=== PATIENT | female | born 1995 | race Caucasian/White ===

== ENCOUNTER 2022-12-29 15:14 | Outpatient (CLI) | payer BC, MEDICAID, SELFPAY ==
--- NOTE | 2022-12-29 15:21 | XR_ITS ---
WS: [id number] EXAMINATION: XR lumbar spine 2-3V* [id number] L-SPINE : 3 views REASON FOR EXAM: M54.50 - Low back pain, unspecified COMPARISON: None available. ORDER DATE: 12/29/2022 3:26 PM FINDINGS: The lumbar vertebral bodies and the disc spaces are normal in width. In the lumbar vertebra, there i s no evidence of compression deformities or spondylolisthesis. IMPRESSION: UNREMARKABLE LUMBAR SPINE STUDY
== END 2022-12-29 15:15 | disposition home or self-care (01) ==
LOC: RAD 15:16
PROVIDERS: PCP Nurse Practitioner Family; Visit Provider Nurse Practitioner Family
DX: M54.50 Low back pain, unspecified
CPT/HCPCS: 72100

== ENCOUNTER 2023-01-20 16:12 | Emergency (ER) | payer BC, MEDICAID, SELFPAY ==
[2023-01-20 16:21] VITALS: BP 134/88; PULSE 88; RESP 16; TEMP 36.6; O2SAT 99; BMI 46.7
[2023-01-20 16:54] VITALS: BP 126/85; PULSE 96; O2SAT 100
[2023-01-20 16:58] VITALS: BP 147/96; BP 151/99; BP 161/110; PULSE 87; PULSE 90
--- NOTE | 2023-01-20 16:59 | W.ED.GIBLEED ---
HPI - GI Bleed General: Chief complaint: GI Bleed Stated complaint: blood in stool Time Seen by Provider: 01/20/23 16:58 History of Present Illness: 27-year-old female comes in today with bright red blood in the stool. Patient reports noticing blood on and off for the last month. Patient reported increased amount of blood in the stool today. Patient has had 2 prior pregnancies with 2 C-sections. Patient reports no known history of hemorrhoids. Patient denies any routine medications. Patient appears nontoxic. Patient appears in no pain. Associated symptoms: Reports nausea; Denies vomiting Review of Systems General: Reports: 10 or more systems reviewed and unremarkable except in HPI and below GI: Reports: nausea and hematochezia; Denies: vomiting, diarrhea or constipation PFSH ED PFSH: Family History Mother Cancer breast Social History Smoking and tobacco status: former smoker Quit status (tobacco): has quit using tobacco Year quit tobacco: 11/07/2022 Second hand smoke exposure: No Alcohol intake: current Alcohol intake frequency: few times a month Alcohol type: wine Substance/Drug Use: never Adopted: Yes Lives independently: Yes Household members: significant other Marital status: Life Partner Number of children: 2 service: No Current occupational status: unemployed Current gender identity: Female Special soren needs: No Physical Exam Const: COMMON NORMALS: alert HENMT: COMMON NORMALS: normocephalic HEAD & SCALP: normocephalic Neck/C-Spine: COMMON NORMALS: full ROM Resp: COMMON NORMALS: normal respiratory effort Cardio: COMMON NORMALS: regular rate and regular rhythm RATE: regular rate RHYTHM: regular rhythm GI: AUSCULTATION: Yes normoactive bowel sounds PALPATION: No Tenderness to palpation present (GI) RECTAL EXAM: normal sphincter tone, heme positive stool, External hemorrhoid(s) present (No acute old healed) and Internal hemorrhoid(s) present (No palpable) OTHER: No stool was noted in the rectum, no palpable masses or other abnormalities. : COMMON NORMALS: Yes no CVA tenderness BLADDER/KIDNEY EXAM: Yes no CVA tenderness Back/Pelvis: COMMON NORMALS: no CVA tenderness Extremity: COMMON NORMALS: full ROM Neuro: SENSORIUM/ORIENTATION: Yes alert Psych: COMMON NORMALS: cooperative Skin: COMMON NORMALS: turgor normal GENERAL SKIN EXAM: turgor normal Course Vital Signs: Vital signs: Vital Signs Temperature 97.9 F 01/20/23 16:21 Pulse Rate 77 01/20/23 17:58 Respiratory Rate 16 01/20/23 16:21 Blood Pressure 152/82 01/20/23 17:58 Pulse Oximetry 94 01/20/23 17:58 Oxygen Delivery Me thod Room Air 01/20/23 16:21 MDM - GI Bleed Medical Decision Making Patient comes in today for concerns of blood in the stool. On exam patient appears nontoxic. Abdomen soft nontender. Skin is warm and dry. Color is pink. Rectal exam noted a Hemoccult positive. Old hemorrhoids were noted externally. No palpable masses or abnormalities was noted on the exam. Differential diagnosis includes but not limited to carcinoma, polyps, internal hemorrhoids. CBC noted a hemoglobin of 12.9. CMP was unremarkable. hCG was negative. Reviewed exam with patient with recommendations for follow-up with surgeon for colonoscopy for further evaluation. Patient was written a prescription for hemorrhoidal suppositories to use for the next 6 days to see if it would help with the abnormal bleeding. I believe patient probably has internal hemorrhoids but she should have further evaluation due to the amount of blood she reports to rule out other causes. Patient reported understanding, patient was stable and discharged home. Lab Data 01/20/23 16:59 01/20/23 16:59 Laboratory Results WBC 9.55 10^3/uL (3.29-11.43) 01/20/23 16:59 RBC 4.91 10^6/uL (3.85-5.65) 01/20/23 16:59 Hgb 12.90 g/dL (11.27-16.99) 01/20/23 16:59 Hct 41.0 % (36-47) 01/20/23 16:59 MCV 83.5 fl (85-98) L 01/20/23 16:59 MCH 26.3 pg (27-33) L 01/20/23 16:59 MCHC 31.5 g/dL (30-55) 01/20/23 16:59 RDW 14.8 % (12.1-15.1) 01/20/23 16:59 Plt Count 268 10^3/cmm (157-399) 01/20/23 16:59 MPV 10.6 fL (7.4-10.4) H 01/20/23 16:59 Neut % (Auto) 66.8 % 01/20/23 16:59 Lymph % (Auto) 25.9 % 01/20/23 16:59 [place] % (Auto) 5.0 % 01/20/23 16:59 Eos % (Auto) 1.3 % 01/20/23 16:59 Baso % (Auto) 0.7 % 01/20/23 16:59 Neut # (Auto) 6.38 10^3/uL (1.8-7.7) 01/20/23 16:59 Lymph # (Auto) 2.5 10^3/uL (0.8-4.8) 01/20/23 16:59 [place] # (Auto) 0.5 10^3/uL (0.2-0.9) 01/20/23 16:59 Eos # (Auto) 0.1 10^3/uL (0.0-0.8) 01/20/23 16:59 Baso # (Auto) 0.1 10^3/uL (0.0-0.1) 01/20/23 16:59 Nucleated RBC % (auto) 0 % 01/20/23 16:59 Nucleated RBCs # 0.0 /100WBC 01/20/23 16:59 Sodium 141 mmol/L (136-145) 01/20/23 16:59 Potassium 3.6 mmol/L (3.5-5.1) 01/20/23 16:59 Chloride 106 mmol/L (98-107) 01/20/23 16:59 Carbon Dioxide 26 mmol/L (22-29) 01/20/23 16:59 Anion Gap 12.6 (5-19) 01/20/23 16:59 BUN 14 mg/dL (6-20) 01/20/23 16:59 Creatinine 0.6 mg/dL (0.5-0.9) 01/20/23 16:59 GFR Calculation 119.9 mL/min (90-130) 01/20/23 16:59 Glucose 88 mg/dL (65-115) 01/20/23 16:59 Calculated Osmolality 292 mOsm/kg (285-295) 01/20/23 16:59 Calcium 9.2 mg/dL (8.5-10.5) 01/20/23 16:59 Total Bilirubin 0.4 mg/dL (0.15-1.2) 01/20/23 16:59 AST 15 U/L (0-32) 01/20/23 16:59 ALT 19 U/L (0-33) 01/20/23 16:59 Alkaline Phosphatase 74 U/L (35-105) 01/20/23 16:59 Total Protein 7.9 g/dL (6.6-8.7) 01/20/23 16:59 Albumin 4.5 g/dL (3.5-5.2) 01/20/23 16:59 Globulin 3.4 g/dL (1.3-4.6) 01/20/23 16:59 HCG, Qual Negative (Negative) 01/20/23 16:59 Discharge Plan Discharge Patient Disposition: Home Clinical Impression: Hematochezia Condition: Stable Prescriptions: New Hemorrhoidal 0.25-3 % suppository 1 supp AL BID Qty: 12 0RF No Action diclofenac sodium 75 mg tablet,delayed release (DR/EC) 75 mg PO BID PRN (Reason: pain) Qty: 60 2RF cyclobenzaprine 10 mg tablet 10 mg PO TID PRN (Reason: muscle spasm) Qty: 30 1RF Discharge Orders: Discharge ED (Routine); Ordered 01/20/23 Ordered By: Stewart Siddiqui Referrals: Leatha Squires FNP [Primary Care Provider] - Discharge Diet: Usual diet Discharge Activity: Increase activity as tolerated Patient Instructions: Melena (ED) Activity Restrictions/Additional Instructions: Use a stool softener to keep stools soft. Use hemorrhoidal suppository 1 suppository 2 times a day for the next 6 days. Drink plenty water and fluids. Avoid ibuprofen, naproxen, and aspirin containing products. You can use acetaminophen for pain. Try to avoid straining hard to have bowel movements or sitting for prolonged periods on the toilet. Case management will contact you regarding follow-up appointment with surgeon for colonoscopy. Return to ED for worsening symptoms such as high fever greater than 100.4, worsening blood in the stool, increased abdominal pain, or new concerns. Coding Level of Care Code ED Machinist Class B for Fernando Villatoro
[2023-01-20 17:09] LABS: Basophils # 0.1 10^3/uL (0.0-0.1); Basophils % 0.7 %; Eosinophils # 0.1 10^3/uL (0.0-0.8); Eosinophils % 1.3 %; Lymphocytes # 2.5 10^3/uL (0.8-4.8); Lymphocytes % 25.9 %; Mean Corpuscular HGB Conc 31.5 g/dL (30-55); Mean Corpuscular Hemoglobin 26.3 pg (27-33); Mean Corpuscular Volume 83.5 fl (85-98); Mean Platelet Volume 10.6 fL (7.4-10.4); Monocytes # 0.5 10^3/uL (0.2-0.9); Neutrophils # 6.38 10^3/uL (1.8-7.7); Neutrophils % 66.8 %; Nucleated Red Blood Cells % 0 %; Platelet Count 268 10^3/cmm (157-399); Red Blood Count 4.91 10^6/uL (3.85-5.65); Red Cell Distribution Width 14.8 % (12.1-15.1); White Blood Count 9.55 10^3/uL (3.29-11.43)
[2023-01-20 17:30] LABS: Alanine Aminotransferase 19 U/L (0-33); Albumin Level 4.5 g/dL (3.5-5.2); Alkaline Phosphatase 74 U/L (35-105); Anion Gap 12.6 (5-19); Aspartate Amino Transferase 15 U/L (0-32); Blood Urea Nitrogen 14 mg/dL (6-20); Calcium 9.2 mg/dL (8.5-10.5); Carbon Dioxide 26 mmol/L (22-29); Chloride 106 mmol/L (98-107); Globulin 3.4 g/dL (1.3-4.6); Glomerular Filtration Rate 119.9 mL/min (90-130); Glucose 88 mg/dL (65-115); Osmolality Calculated 292 mOsm/kg (285-295); Potassium 3.6 mmol/L (3.5-5.1); Sodium 141 mmol/L (136-145); Total Bilirubin 0.4 mg/dL (0.15-1.2); Total Protein 7.9 g/dL (6.6-8.7)
[2023-01-20 17:31] LABS: HCG, Serum Qual Negative (Negative)
[2023-01-20 17:58] VITALS: BP 152/82; PULSE 77; O2SAT 94
--- NOTE | 2023-01-21 11:21 | DCPLANNER ---
beef cattle farm manager had message to schedule a follow up appointment for patient with general surgery. beef cattle farm manager sent patients information to the front office staff at general surgery. Patients information will be printed and reviewed. Clinic will call patient with appointment information.
== END 2023-01-20 17:59 | disposition home or self-care (01) ==
PROVIDERS: Emergency Provider Nurse Practitioner Family; PCP Nurse Practitioner Family
DX: K92.1 Melena (principal); Z87.891 Personal history of nicotine dependence
CPT/HCPCS: 80053; 84703; 85025; 99283

== ENCOUNTER 2023-01-30 19:34 | Emergency (ER) | payer BC, MEDICAID, SELFPAY ==
[2023-01-30 19:41] VITALS: BP 135/87; PULSE 84; RESP 17; TEMP 36.8; O2SAT 99; BMI 45.7
[2023-01-30 20:10] VITALS: BP 154/83; PULSE 90; RESP 18; O2SAT 99
[2023-01-30 20:21] LABS: HCG Qualitative Urine. Negative (Negative)
[2023-01-30 20:22] LABS: Add Urine Microscopic? YES; Bilirubin Urine Neg (Negative); Blood Urine 3+ (Negative); Glucose Urine UA Norm (Normal); Ketones Urine Negative (Negative); Leukocyte Esterase Urine Negative (Negative); Nitrate Urine Negative (Negative); Protein Urine Neg (Negative); Urine Appearance Clear (CLEAR); Urine Color Yellow (Yellow); Urobilinogen Urine Norm (Negative); pH Urine 5 (5-7)
--- NOTE | 2023-01-30 20:24 | ED_ITS ---
HPI - Back Pain/Injury General: Chief Complaint: Back Pain/Injury Stated Complaint: back pain, Left side pain Time Seen by Provider: 01/30/23 19:40 Source: patient History of Present Illness: 27-year-old female with a several month history of back pain. She says in August she was seen in outside facility and had an x-ray showing potential for a pars defect. She has seen her primary physician, and is scheduled for an MRI day after tomorrow. She says that over the last 2 days, her pain is gotten much worse. Pain is radicular on the left side down to her knee. She says the pain stretches up into her left shoulder as well. She says it is painful to move, making it hard to walk. She can walk. Her strength is intact. She is not overly weak. No saddle anesthesia. No numbness or tingling whatsoever. No fever. No abdominal pain. No change in her urine. She does not believe she is . MD elicited complaint: back pain Associated symptoms: Reports difficulty walking and nausea; Deny abdominal pain, chills, dysuria, fever(s), hematuria or vomiting Review of Systems Const: Denies: fever(s) or chills ENMT: Denies: throat pain Card: Denies: chest pain Resp: Denies: dyspnea GI: Reports: nausea; Denies: abdominal pain or vomiting : Denies: flank pain, difficulty voiding, dysuria or hematuria Musc: Reports: back pain; Denies: neck pain Skin/Breast: Denies: rash Neuro: Reports: difficulty walking; Denies: weakness in extremities, sensory changes or dizziness PFS ED PFSH: Family History Mother Cancer breast Social History Smoking and tobacco status: former smoker Quit status (tobacco): has quit using tobacco Year quit tobacco: 11/07/2022 Second hand smoke exposure: No Alcohol intake: current Alcohol intake frequency: few times a month Alcohol type: wine Substance/Drug Use: never Adopted: Yes Lives independently: Yes Household members: significant other Marital status: Life Partner Number of children: 2 service: No Current occupational status: unemployed Current gender identity: Female Special soren needs: No Physical Exam Const: COMMON NORMALS: no acute distress GENERAL APPEARANCE: cooperative; not ill appearing and not frail appearing HENMT: COMMON NORMALS: normocephalic, atraumatic and Normal external nose present HEAD & SCALP: normocephalic and atraumatic FACE & SINUS: normal facial exam and face symmetric NOSE: Normal external nose present Eye: COMMON NORMALS: Equal, round and reactive pupils present and EOMs intact bilaterally PUPIL: Yes Equal, round and reactive pupils present Neck/C-Spine: GENERAL: Yes trachea midline Chest: CHEST: Yes Symmetrical chest wall rise Resp: COMMON NORMALS: normal respiratory effort, No retractions, No use of accessory muscles and clear to auscultation bilaterally AUSCULTATION: clear to auscultation bilaterally Cardio: COMMON NORMALS: regular rate and regular rhythm RATE: regular rate RHYTHM: regular rhythm GI: COMMON NORMALS: Normal to inspection, nondistended, normoactive bowel sounds present Back/Pelvis: OTHER: Examination lumbar spine reveals pain over the L4-5 L5-S1 areas in the midline and to the left. No right-sided tenderness. No significant muscle spasm. Straight leg raise on the left causes pain to radiate to the knee, but not below. Opposite leg is negative. Sensation is intact. Strength on testing of L4, L5, and S1 roots is normal. Extremity: COMMON NORMALS: no pedal edema Neuro: GEORGINA COMA SCALE: document GCS findings Georgina coma scale eye opening: Spontaneous [place] coma scale verbal response: Orientated Georgina coma scale motor response: Obey commands [place] coma scale total score: 15 SENSORY EXAM: Yes extremities (intact) Psych: COMMON NORMALS: speech normal SPEECH: Yes normal speech Skin: COMMON NORMALS: no rashes or lesions noted GENERAL SKIN EXAM: no rashes or lesions noted Course Vital Signs: Vital signs: Vital Signs Temperature 98.2 F 01/30/23 19:41 Pulse Rate 90 01/30/23 20:10 Respiratory Rate 18 01/30/23 20:10 Blood Pressure 154/83 01/30/23 20:10 Pulse Oximetry 99 01/30/23 20:10 Oxygen Delivery Me thod Room Air 01/30/23 20:10 MDM - Back Pain/Injury Medical Decision Making Urinalysis is negative. Urine is negative. X-ray from 12/29/2022 is reviewed, showing normal alignment of the lumbar spine. Disc spaces are maintained. There is no spondylolisthesis. No clear pars defects are noted. We have no ability to do MRI scanning from the ER at this facility. She is scheduled in 36 hours or so to do her MRI. I think that this is appropriate. Labs Laboratory Results HCG, Qual Negative (Negative) 01/30/23 Unknown Urine Color Yellow (Yellow) 01/30/23 Unknown Urine Appearance Clear (CLEAR) 01/30/23 Unknown Urine pH 5 (5-7) 01/30/23 Unknown Ur Specific [place] 1.030 (1.005-1.030) 01/30/23 Unknown Urine Protein Neg (Negative) 01/30/23 Unknown Urine Glucose (UA) Norm (Normal) 01/30/23 Unknown Urine Ketones Negative (Negative) 01/30/23 Unknown Urine Blood 3+ (Negative) H 01/30/23 Unknown Urine Nitrate Negative (Negative) 01/30/23 Unknown Urine Bilirubin Neg (Negative) 01/30/23 Unknown Urine Urobilinogen Norm mg/dL (Negative) 01/30/23 Unknown Ur Leukocyte Esterase Negative (Negative) 01/30/23 Unknown Urine RBC 0-4 /hpf (0-2) H 01/30/23 Unknown Urine WBC Rare /hpf (0-5) 01/30/23 Unknown Ur Squamous Epith Cells 0-4 /hpf (0-5) H 01/30/23 Unknown Amorphous Sediment Not Reportable 01/30/23 Unknown Urine Bacteria Trace /hpf (NONE) 01/30/23 Unknown Urine Mucus 1+ /hpf 01/30/23 Unknown No radiology studies performed this visit Discharge Plan Discharge Patient Disposition: Home Clinical Impression: Lumbar radiculopathy, Chronic low back pain Condition: Stable Prescriptions: New hydrocodone-acetaminophen 5-325 mg tablet 1 tab PO Q8H PRN (Reason: pain) Qty: 7 0RF Medrol (Hipolito) 4 mg tablets,dose pack See Rx Instructions .ROUTE .COMPLEX Qty: 21 0RF Rx Instructions: orally per package directions No Action polyethylene glycol 3350 [Miralax] 17 gram/dose powder 17 g PO DAILY PRN (Reason: constipation) Qty: 238 2RF docusate sodium 100 mg capsule 100 mg PO DAILY 30 Days Qty: 30 2RF diclofenac sodium 75 mg tablet,delayed release (DR/EC) 75 mg PO BID PRN (Reason: pain) Qty: 60 2RF cyclobenzaprine 10 mg tablet 10 mg PO TID PRN (Reason: muscle spasm) Qty: 30 1RF Hemorrhoidal 0.25-3 % suppository 1 supp GA BID Qty: 12 0RF Discharge Orders: Discharge ED (Routine); Ordered 01/30/23 Ordered By: Ricco Salazar Referrals: Leatha Squires FNP [Primary Care Provider] - 1-3 days Patient Instructions: Lumbar Radiculopathy (ED), Opioid Safety, Pain Management Activity Restrictions/Additional Instructions: Medication as directed. Blister pack of medication has been shown to decrease radicular pain down your leg 80% of the time significantly. Follow-up on Wednesday for your MRI as scheduled. Follow-up with your doctor this week. Return for fever, loss of sensation, especially to your groin or genital area, loss of control of your bowel or bladder function, other concerning symptoms. Coding Level of Care Code ED Out And Out Cigar Maker Hand for Fernando Villatoro
[2023-01-30 20:30] LABS: RBC Urine 0-4 /hpf (0-2); Squamous Epithelial Cell Urine 0-4 /hpf (0-5); WBC Urine RARE /hpf (0-5)
[2023-01-30 20:31] LABS: Add Urine Culture? No; Bacteria Urine TRACE /hpf; Mucus Urine 1+ /hpf
[2023-01-30] MEDS: dexamethasone 4 mg Tablet 10 MG PO (20:41)
[2023-01-30] MEDS: oxyCODONE-APAP 5-325 mg Tablet 2 TAB PO (20:41)
[2023-01-30] MEDS: ketorolac 30 mg/mL INJ 60 MG IM (20:45)
[2023-01-30 21:30] VITALS: BP 130/70; PULSE 66; RESP 16; O2SAT 98
== END 2023-01-30 21:26 | disposition home or self-care (01) ==
PROVIDERS: Emergency Provider Emergency Medicine; PCP Nurse Practitioner Family
DX: M54.16 Radiculopathy, lumbar region (principal); G89.29 Other chronic pain; Z87.891 Personal history of nicotine dependence
CPT/HCPCS: 81001; 81025; 96372; 99284; J1885; J8540

== ENCOUNTER 2023-02-01 07:44 | Outpatient (CLI) | payer BC, MEDICAID, SELFPAY ==
--- NOTE | 2023-02-01 08:00 | MR_ITS ---
WS: [id number] MRI LUMBAR SPINE NONCONTRAST TECHNIQUE: Sagittal T1, T2 and STIR imaging. Axial T1 and T2 imaging. CLINICAL INFORMATION: M54.50 - Low back pain, unspecified COMPARISON: None. FINDINGS: Mild lumbar curve. No acute compression. No high-grade central canal stenosis. L1-L2: Mild facet arthropathy. Spinal canal and foramen are patent. L2-L3: Mild facet arthropathy. Spinal canal and foramen are patent. L3-L4: No significant disc bulging. Mild arthropathy. Spinal canal and foramen are patent. L4-L5: Minimal annular bulging. Slight effacement of the ventral thecal sac. Mild facet arthropathy. Small facet effusions. Spinal canal and foramen are patent. L5-S1: Minimal annular bulging. Moderate facet arthropathy. Small facet effusions. Spinal canal and f oramen are patent. Visualized pelvic bony structures: Normal. Paravertebral soft tissues: Normal. IMPRESSION: 1. Mild lumbar curve. No acute compression. No high-grade central canal stenosis. 2. Minimal annular bulging L4-5 and L5-S1. No significant central canal stenosis. 3. Mild facet arthropathy L4-5 and moderate facet arthropathy L5-S1 with small bilateral facet effus ions can be seen with synovitis or instability. 4. No significant foraminal narrowing.
== END 2023-02-01 07:45 | disposition home or self-care (01) ==
LOC: RAD 07:44
PROVIDERS: PCP Nurse Practitioner Family; Visit Provider Nurse Practitioner Family
DX: G89.29 Other chronic pain (principal); M54.50 Low back pain, unspecified; M51.36 Other intervertebral disc degeneration, lumbar region; M12.88 Other specific arthropathies, not elsewhere classified, other specified site
CPT/HCPCS: 72148

== ENCOUNTER 2023-03-20 19:15 | Emergency (ER) | payer BC, MEDICAID, SELFPAY ==
[2023-03-20 19:20] VITALS: BP 149/114; PULSE 111; RESP 20; TEMP 36.7; O2SAT 97
--- NOTE | 2023-03-20 19:40 | ECG_ITS ---
[facility] Test Date: 2023-03-20 Pat Name: Deborah Stark Department: Room: Gender: Female Package Delivery Driver: : [id number] Requested By: Ricco Morales Order Number: [id number] Shama MD: Clotilde Huber M.D. Measurements Intervals [place] Rate: 96 P: 58 OR: 160 QRS: 22 QRSD: 92 T: 38 QT: 327 QTc: 413 Interpretive Statements SINUS RHYTHM POSSIBLE LEFT ATRIAL ENLARGEMENT [-0.1mV P-WAVE IN V1/V2] NONSPECIFIC T-WAVE ABNORMALITY No previous ECG available for comparison Electronically Signed On 03-22-2023 9:44:12 BED SPRING MAKER by Clotilde Huber M.D. [id number]
[2023-03-20 20:04] VITALS: BP 174/111; PULSE 107; RESP 20; O2SAT 99
[2023-03-20 20:12] LABS: Basophils # 0.1 10^3/uL (0.0-0.1); Basophils % 0.6 %; Eosinophils # 0.1 10^3/uL (0.0-0.8); Lymphocytes # 1.9 10^3/uL (0.8-4.8); Lymphocytes % 15.2 %; Mean Corpuscular Hemoglobin 26.7 pg (27-33); Mean Corpuscular Volume 83.3 fl (85-98); Monocytes # 0.4 10^3/uL (0.2-0.9); Monocytes % 3.5 %; Neutrophils # 9.85 10^3/uL (1.8-7.7); Neutrophils % 79.4 %; Nucleated Red Blood Cells % 0 %; Platelet Count 284 10^3/cmm (157-399); Red Cell Distribution Width 13.6 % (12.1-15.1)
[2023-03-20 20:34] LABS: SARS Covid-2 Antigen negative (Negative)
[2023-03-20 20:43] LABS: Alanine Aminotransferase 25 U/L (0-33); Albumin Level 4.6 g/dL (3.5-5.2); Alkaline Phosphatase 108 U/L (35-105); Anion Gap 17.4 (5-19); Aspartate Amino Transferase 17 U/L (0-32); Blood Urea Nitrogen 16 mg/dL (6-20); Calcium 9.9 mg/dL (8.5-10.5); Carbon Dioxide 23 mmol/L (22-29); Chloride 102 mmol/L (98-107); Globulin 3.4 g/dL (1.3-4.6); Glomerular Filtration Rate 100.4 mL/min (90-130); Glucose 122 mg/dL (65-115); Osmolality Calculated 290 mOsm/kg (285-295); Potassium 3.4 mmol/L (3.5-5.1); Salicylate 0.6 mg/dL (3-10); Sodium 139 mmol/L (136-145); Thyroid Stimulating Hormone 2.24 uIU/mL (0.27-4.20); Total Bilirubin 0.6 mg/dL (0.15-1.2)
[2023-03-20 20:47] LABS: Acetaminophen < 5.0 ug/mL (10-30); Alcohol Level < 10 mg/dL (0-10)
[2023-03-20] MEDS: diclofenac 75 mg DR Tablet PO (21:01)
[2023-03-20 21:03] VITALS: BP 124/89; PULSE 99; RESP 14
[2023-03-20 21:05] LABS: HCG Qualitative Urine. Negative (Negative)
[2023-03-20 21:16] LABS: Protein Urine Trace (Negative); Specific Gravity, Urine 1.025 (1.005-1.030); Urine Appearance Cloudy (CLEAR); Urine Color Yellow (Yellow); pH Urine 5 (5-7)
[2023-03-20 21:17] LABS: Add Urine Culture? No; Add Urine Microscopic? YES; Amorphous Sediment Urine 1+ /hpf; Amphetamines Screen Urine Negative (Negative); Bacteria Urine 1+ /hpf; Barbiturates Screen Urine Negative (Negative); Benzodiazepines Screen Urine Negative (Negative); Bilirubin Urine 1+ (Negative); Blood Urine Neg (Negative); Cocaine Screen Urine Negative (Negative); Glucose Urine UA Norm (Normal); Ketones Urine 1+ (Negative); Leukocyte Esterase Urine Trace (Negative); Mucus Urine 3+ /hpf; Nitrate Urine Negative (Negative); Opiate Screen Urine Negative (Negative); PCP Screen Urine Negative (Negative); RBC Urine RARE /hpf (0-2); THC Screen Urine Negative (Negative); Urobilinogen Urine 1 mg/dL (Negative); WBC Urine RARE /hpf (0-5)
--- NOTE | 2023-03-20 22:23 | W.ED.PSYCHS ---
HPI - Psych General: Chief Complaint: Psychiatric Symptoms Stated Complaint: SI Time Seen by Provider: 03/20/23 19:26 History of Present Illness: 27-year-old female with a history of psychiatric disease. She notes her last hospitalization was in 2016 or so. She presents with suicidal ideations. Her plan was to walk out in traffic. She broke up with her significant other/delta? earlier in the evening and is quite upset about this. She is tearful. Feeling very upset. Hopeless. She has been taking her antidepressant, duloxetine, as well as trazodone faithfully. She is not having hallucinations. Review of Systems Const: Denies: fever(s), chills or body aches Eyes: Reports: change in vision Card: Reports: chest pain (anxiety related); Denies: palpitations Resp: Denies: dyspnea, productive cough, non-productive cough or wheezing GI: Reports: nausea and vomiting (once here); Denies: abdominal pain, diarrhea or hematochezia : Denies: difficulty voiding Skin/Breast: Denies: rash Neuro: Denies: headache(s), weakness in extremities, dizziness or confusion PFSH ED PFSH: Medical History Psychiatric care Family History Mother Cancer breast Social History Smoking and tobacco/nicotine status: former use of tobacco/nicotine Quit status (tobacco/nicotine): has quit using Year quit tobacco: 11/07/2022 Second hand smoke exposure: No Alcohol intake: current Alcohol intake frequency: few times a month Alcohol type: wine Substance/Drug Use: never Adopted: Yes Lives independently: Yes Household members: significant other Marital status: Life Partner Number of children: 2 service: No Current occupational status: unemployed Current gender identity: Female Special soren needs: No Physical Exam Const: GENERAL APPEARANCE: cooperative and anxious; not ill appearing and not frail appearing HENMT: COMMON NORMALS: normocephalic, atraumatic and Normal external nose present HEAD & SCALP: normocephalic and atraumatic FACE & SINUS: normal facial exam and face symmetric NOSE: Normal external nose present Eye: COMMON NORMALS: Equal, round and reactive pupils present and EOMs intact bilaterally PUPIL: Yes Equal, round and reactive pupils present Neck/C-Spine: GENERAL: Yes trachea midline Chest: CHEST: Yes Symmetrical chest wall rise Resp: COMMON NORMALS: normal respiratory effort, No retractions, No use of accessory muscles and clear to auscultation bilaterally AUSCULTATION: clear to auscultation bilaterally Cardio: COMMON NORMALS: regular rate and regular rhythm RATE: regular rate RHYTHM: regular rhythm GI: COMMON NORMALS: Normal to inspection, nondistended, normoactive bowel sounds present Extremity: COMMON NORMALS: no pedal edema Neuro: GEORGINA COMA SCALE: document GCS findings [place] coma scale eye opening: Spontaneous Georgina coma scale verbal response: Orientated [place] coma scale motor response: Obey commands [place] coma scale total score: 15 SENSORY EXAM: Yes extremities (intact) Psych: COMMON NORMALS: speech normal SPEECH: Yes normal speech Skin: COMMON NORMALS: no rashes or lesions noted GENERAL SKIN EXAM: no rashes or lesions noted Course Vital Signs: Vital signs: Vital Signs Temperature 98.0 F 03/20/23 19:20 Pulse Rate 99 03/20/23 21:03 Respiratory Rate 14 03/20/23 21:03 Blood Pressure 124/89 03/20/23 21:03 Pulse Oximetry 99 03/20/23 20:04 Oxygen Delivery Me thod Room Air 03/20/23 19:20 MDM - Psych Medical Decision Making This patient is having active suicidal ideations. Her depression is somewhat situational, but she does have a history. She will need psychiatric evaluation. We do not have any beds available at our facility currently. Medically, she is very stable. We will look at transfer to an appropriate facility. 03/21/2023 @00:06 I have reinterviewed this patient. She has been calm and cooperative here. She relates that after having had time to think, she believes she has too much to live for to want to . She relates getting to video call her children tomorrow which she is excited about, and starting a new job on Wednesday. She also relates that she would not be able to resolve a conversation with her fianc? that may or may not have led to this. She states that she is no longer suicidal. That she does not wish to , has no plan to do so. Medically, she is stable. She will be allowed discharge. Outpatient follow-up. Lab Data 03/20/23 20:00 03/20/23 20:00 Laboratory Results WBC 12.40 10^3/uL (3.29-11.43) H 03/20/23 20:00 RBC 4.80 10^6/uL (3.85-5.65) 03/20/23 20:00 Hgb 12.80 g/dL (11.27-16.99) 03/20/23 20:00 Hct 40.0 % (36-47) 03/20/23 20:00 MCV 83.3 fl (85-98) L 03/20/23 20:00 MCH 26.7 pg (27-33) L 03/20/23 20:00 MCHC 32.0 g/dL (30-55) 03/20/23 20:00 RDW 13.6 % (12.1-15.1) 03/20/23 20:00 Plt Count 284 10^3/cmm (157-399) 03/20/23 20:00 MPV 10.0 fL (7.4-10.4) 03/20/23 20:00 Neut % (Auto) 79.4 % 03/20/23 20:00 Lymph % (Auto) 15.2 % 03/20/23 20:00 [place] % (Auto) 3.5 % 03/20/23 20:00 Eos % (Auto) 1.0 % 03/20/23 20:00 Baso % (Auto) 0.6 % 03/20/23 20:00 Neut # (Auto) 9.85 10^3/uL (1.8-7.7) H 03/20/23 20:00 Lymph # (Auto) 1.9 10^3/uL (0.8-4.8) 03/20/23 20:00 [place] # (Auto) 0.4 10^3/uL (0.2-0.9) 03/20/23 20:00 Eos # (Auto) 0.1 10^3/uL (0.0-0.8) 03/20/23 20:00 Baso # (Auto) 0.1 10^3/uL (0.0-0.1) 03/20/23 20:00 Nucleated RBC % (auto) 0 % 03/20/23 20:00 Nucleated RBCs # 0.0 /100WBC 03/20/23 20:00 Sodium 139 mmol/L (136-145) 03/20/23 20:00 Potassium 3.4 mmol/L (3.5-5.1) L 03/20/23 20:00 Chloride 102 mmol/L (98-107) 03/20/23 20:00 Carbon Dioxide 23 mmol/L (22-29) 03/20/23 20:00 Anion Gap 17.4 (5-19) 03/20/23 20:00 BUN 16 mg/dL (6-20) 03/20/23 20:00 Creatinine 0.7 mg/dL (0.5-0.9) 03/20/23 20:00 GFR Calculation 100.4 mL/min (90-130) 03/20/23 20:00 Glucose 122 mg/dL (65-115) H 03/20/23 20:00 Calculated Osmolality 290 mOsm/kg (285-295) 03/20/23 20:00 Calcium 9.9 mg/dL (8.5-10.5) 03/20/23 20:00 Total Bilirubin 0.6 mg/dL (0.15-1.2) 03/20/23 20:00 AST 17 U/L (0-32) 03/20/23 20:00 ALT 25 U/L (0-33) 03/20/23 20:00 Alkaline Phosphatase 108 U/L (35-105) H 03/20/23 20:00 Total Protein 8.0 g/dL (6.6-8.7) 03/20/23 20:00 Albumin 4.6 g/dL (3.5-5.2) 03/20/23 20:00 Globulin 3.4 g/dL (1.3-4.6) 03/20/23 20:00 TSH 2.24 uIU/mL (0.27-4.20) 03/20/23 20:00 HCG, Qual Negative (Negative) 03/20/23: Urine Color Yellow (Yellow) 03/20/23: Urine Appearance Cloudy (CLEAR) A 03/20/23 20:52 Urine pH 5 (5-7) 03/20/23 20: Ur Specific [place] 1.025 (1.005-1.030) 03/20/23 20:52 Urine Protein Trace (Negative) 03/20/23 20:52 Urine Glucose (UA) Norm (Normal) 03/20/23 20:52 Urine Ketones 1+ (Negative) H 03/20/23 20:52 Urine Blood Neg (Negative) 03/20/23 20:52 Urine Nitrate Negative (Negative) 03/20/23 20:52 Urine Bilirubin 1+ (Negative) H 03/20/23 20:52 Urine Urobilinogen 1 mg/dL (Negative) H 03/20/23 20:52 Ur Leukocyte Esterase Trace (Negative) H 03/20/23 20:52 Urine RBC Rare /hpf (0-2) 03/20/23 20:52 Urine WBC Rare /hpf (0-5) 03/20/23 20:52 Ur Squamous Epith Cells 10-15 /hpf (0-5) H 03/20/23 20:52 Amorphous Sediment 1+ /hpf 03/20/23 20:52 Urine Bacteria 1+ /hpf (NONE) H 03/20/23 20:52 Urine Mucus 3+ /hpf 03/20/23 20:52 Salicylates 0.6 mg/dL (3-10) L 03/20/23 20:00 Urine Opiates Screen Negative ng/mL (Negative) 03/20/23 20:52 Acetaminophen < 5.0 ug/mL (10-30) L 03/20/23 20:00 Ur Barbiturates Screen Negative ng/mL (Negative) 03/20/23 20:52 Ur Phencyclidine Scrn Negative ng/mL (Negative) 03/20/23 20:52 Ur Amphetamines Screen Negative ng/mL (Negative) 03/20/23 20:52 U Benzodiazepines Scrn Negative ng/mL (Negative) 03/20/23 20:52 Urine Cocaine Screen Negative ng/mL (Negative) 03/20/23 20:52 U Marijuana (THC) Screen Negative ng/mL (Negative) 03/20/23 20:52 Ethyl Alcohol < 10 mg/dL (0-10) 03/20/23 20:00 SARS-CoV-2 Ag (Rapid) negative (Negative) 03/20/23 19:55 No radiology studies performed this visit Discharge Plan Discharge Patient Disposition: Home Clinical Impression: Situational mixed anxiety and depressive disorder Condition: Stable Prescriptions: No Action cyclobenzaprine 10 mg tablet 10 mg PO TID PRN (Reason: muscle spasm) Qty: 60 1RF diclofenac sodium 75 mg tablet,delayed release (DR/EC) 75 mg PO BID PRN (Reason: pain) Qty: 60 2RF duloxetine [Cymbalta] 30 mg capsule,delayed release(DR/EC) 30 mg PO DAILY Qty: 30 1RF trazodone 50 mg tablet 100 mg PO .HS PRN (Reason: insomnia) Qty: 60 1RF Discharge Orders: Discharge ED (Routine); Ordered 03/21/23 Ordered By: Ricco Salazar Referrals: Leatha Squires FNP [Primary Care Provider] - 1-3 days Patient Instructions: Depression (ED), Opioid Safety, Pain Management Activity Restrictions/Additional Instructions: Return for any return of thoughts or wishes to harm yourself or anyone else. Call your doctor Wednesday, for a follow-up appointment. Coding Level of Care Code ED Engineering And Development Director for Fernando Villatoro
== END 2023-03-21 00:12 | disposition home or self-care (01) ==
PROVIDERS: Emergency Provider Emergency Medicine; PCP Nurse Practitioner Family
DX: F41.8 Other specified anxiety disorders (principal); Z11.52 Encounter for screening for COVID-19; Z87.891 Personal history of nicotine dependence
CPT/HCPCS: 36415; 80053; 80306; 80307; 81001; 81025; 84443; 85025; 87426; 93005; 99284; 99291

== ENCOUNTER → 2023-05-15 18:04 | Outpatient (BNVA) | payer OTHER, SELFPAY | PROVIDERS: PCP Nurse Practitioner Family | DX: M25.562 Pain in left knee (principal) | CPT/HCPCS: 73562 ==